=== PATIENT | male | born 1970 | race Caucasian/White ===

== ENCOUNTER 2018-07-11 00:50 | Emergency (ER) | payer MEDICAID ==
[~2018-07-11] VITALS: Ht 182.9 cm; Wt 81.6 kg
[2018-07-11] MEDS ORDERED: ADENOSINE 6 MG/2 ML SYR IV ONE (01:00)
--- NOTE | 2018-07-11 01:00 | NUR ---
Seen and evaluated by
[2018-07-11 02:14] LABS: BASOPHILS # (AUTO) 0.1 K/uL (0.0-8.0); BASOPHILS % (AUTO) 1.3 % (0.0-2.0); EOSINOPHILS # (AUTO) 0.1 K/uL (0.0-0.7); EOSINOPHILS % (AUTO) 1.2 % (0.0-7.0); HEMATOCRIT 40.9 % (36.7-47.1); HEMOGLOBIN 13.9 g/dL (12.5-16.3); LYMPHOCYTES % (AUTO) 22.7 % (20.5-51.5); MEAN CORPUSCULAR HEMOGLOBIN 30.5 uug (23.8-33.4); MEAN CORPUSCULAR HGB CONC 34 g/dL (32.5-36.3); MEAN CORPUSCULAR VOLUME 89.9 fL (73.0-96.2); MONOCYTES # (AUTO) 0.9 K/uL (2.0-10.0); MONOCYTES % (AUTO) 10.1 % (0.0-11.0); NEUTROPHILS # (AUTO) 5.7 K/uL (1.8-8.9); NEUTROPHILS % (AUTO) 64.7 % (38.5-71.5); PLATELET COUNT (AUTO) 221 K/uL (152-348); RED BLOOD CELL COUNT(AUTO) 4.54 MIL/uL (4.06-5.63); WHITE BLOOD COUNT (AUTO) 8.8 K/uL (3.6-10.2)
[2018-07-11 02:25] LABS: CREATININE 1.1 mg/dL (0.6-1.3); MAGNESIUM 2.1 mg/dL (1.8-2.4)
[2018-07-11 02:30] LABS: BILIRUBIN,DIRECT 0.2 mg/dL (0.0-0.2); BILIRUBIN,TOTAL 0.4 mg/dL (0.2-1.0); TOTAL PROTEIN, SERUM 6.4 g/dL (6.4-8.2)
[2018-07-11 02:39] LABS: THYROID STIMULATING HORMONE 5.502 mIU/mL (0.358-3.740)
[2018-07-11] MEDS ORDERED: ASPIRIN EC 325 MG TABLET.DR PO ONE (02:40)
[2018-07-11] MEDS ORDERED: PANTOPRAZOLE SODIUM 40 MG TABLET.DR PO ONE ×2 (02:41→02:45)
[2018-07-11] MEDS ORDERED: ASPIRIN 81 MG TAB.CHEW PO ONE (02:45)
== END 2018-07-11 02:54 | disposition left against medical advice (07) ==
LOC: ER 00:53
DX: I47.1 Supraventricular tachycardia (principal); E03.9 Hypothyroidism, unspecified; R79.89 Other specified abnormal findings of blood chemistry; F17.200 Nicotine dependence, unspecified, uncomplicated; F12.10 Cannabis abuse, uncomplicated; I48.91 Unspecified atrial fibrillation
CPT/HCPCS: 36415; 80048; 80076; 83735; 84443; 84484; 85025; 85730; 93005 ×2; 96374; 99284; J0153; 70030-TC; A4663

== ENCOUNTER 2019-03-22 16:21 | Emergency (ER) | payer MEDICAID ==
[~2019-03-22] VITALS: Ht 182.9 cm; Wt 81.6 kg
[2019-03-22] MEDS ORDERED: ADENOSINE 6 MG/2 ML SYR IV ONE ×2 (16:36→16:40)
[2019-03-22] MEDS ORDERED: MIDAZOLAM HCL 2 MG/2 ML VIAL ONE ×2 (16:41→16:46)
[2019-03-22] MEDS: ADENOSINE 6 MG/2 ML SYR IV ONE ×3 (16:48→16:50)
[2019-03-22] MEDS: MIDAZOLAM HCL 2 MG/2 ML VIAL IV ONE ×2 (16:51)
[2019-03-22] MEDS: IV NS 1000 ML 1,000 ML IV ONE (17:17)
== END 2019-03-22 17:38 | disposition left against medical advice (07) ==
LOC: ER 16:22
DX: R00.0 Tachycardia, unspecified (principal); I48.91 Unspecified atrial fibrillation; F17.200 Nicotine dependence, unspecified, uncomplicated; F12.10 Cannabis abuse, uncomplicated; F15.10 Other stimulant abuse, uncomplicated; Z90.89 Acquired absence of other organs
CPT/HCPCS: 93005; 96374; 99283; J0153 ×2; A4663; J2250; J7030

== ENCOUNTER 2019-07-17 01:07 | Emergency (ER) | payer MEDICAID ==
[~2019-07-17] VITALS: Ht 175.3 cm; Wt 79.4 kg
--- NOTE | 2019-07-17 01:07 | NUR ---
Dr. Fletcher at bedside for MSE
--- NOTE | 2019-07-17 01:10 | NUR ---
Patient walked into ER c/o palpitation with chest discomfort that started 1hr [facility]. Patient SOB. EKG done and informed Dr Fletcher of EKG result.
[2019-07-17] MEDS ORDERED: ADENOSINE 6 MG/2 ML SYR IV ONE ×2 (01:18→03:15)
[2019-07-17 01:44] LABS: CREATININE 1.3 mg/dL (0.6-1.3); POTASSIUM 3.4 mmol/L (3.5-5.1)
[2019-07-17 01:56] LABS: BILIRUBIN,DIRECT 0.1 mg/dL (0.0-0.2); BILIRUBIN,TOTAL 0.3 mg/dL (0.2-1.0); TOTAL PROTEIN, SERUM 6.7 g/dL (6.4-8.2)
[2019-07-17] MEDS ORDERED: POTASSIUM CHLORIDE 20 MEQ TAB.PRT.SR PO ONE (02:00)
[2019-07-17] MEDS ORDERED: MAGNESIUM SULFATE/D5W 100 ML ONE ×2 (02:07→02:19)
[2019-07-17] MEDS ORDERED: POTASSIUM CHLORIDE 20 MEQ TAB.PRT.SR ONE (02:07)
[2019-07-17] MEDS: MAGNESIUM SULFATE/D5W 100 ML IV SCH (02:15)
--- NOTE | 2019-07-17 02:57 | NUR ---
patient in bed awake and watching TV with at bedside. Breathing even and unlabored. denies any chest pain at this time. pt states "i feel better now". Dr. Fletcher made aware
--- NOTE | 2019-07-17 03:29 | NUR ---
IV removed. Catheter intact and site benign. Pressure and 4x4 gauze applied to site. No bleeding noted. Patient does not wish to proceed with medical care recommended by Dr. Fletcher. Patient given information related to possible complications, up to and including , which could occur as a result of leaving the hospital at this time. Patient verbalizes understanding of risks involved due to leaving against medical advice. Patient has signed AMA form. Patient ambulating with steady gait with at bedside. Patient denies any pain or discomfort. NAD noted
== END 2019-07-17 03:33 | disposition left against medical advice (07) ==
LOC: ER 01:09
DX: R00.0 Tachycardia, unspecified (principal); I48.91 Unspecified atrial fibrillation; F17.200 Nicotine dependence, unspecified, uncomplicated; F12.10 Cannabis abuse, uncomplicated; F19.90 Other psychoactive substance use, unspecified, uncomplicated
CPT/HCPCS: 36415; 71045; 80048; 80076; 93005 ×2; 96365; 96375; 99284; J0153; J3475; A4663; J7030

== ENCOUNTER 2020-09-19 01:45 | Emergency (ER) | payer MEDICAID ==
[~2020-09-19] VITALS: Ht 182.9 cm; Wt 79.4 kg
--- NOTE | 2020-09-19 01:58 | NUR ---
Patient is sitting upright on bed, c/o of right eye irritation.
--- NOTE | 2020-09-19 02:05 | NUR ---
MD GARCIA IN ROOM TO EVALUATE PATIENT.
[2020-09-19] MEDS ORDERED: FLUORESCEIN SODIUM 1 MG STRIP OP ONE (02:15)
[2020-09-19] MEDS ORDERED: FLUORESCEIN SODIUM 1 MG STRIP ONE (02:16)
[2020-09-19] MEDS ORDERED: SULFACETAMIDE SOD 10% OPHT DR 15 ML BOTTLE ONE (02:30)
[2020-09-19] MEDS ORDERED: SULFACETAMIDE SOD 10% OPHT DR 15 ML BOTTLE OP ONE (02:30)
[2020-09-19 02:36] VITALS: BP 150/86
--- NOTE | 2020-09-19 02:36 | NUR ---
Patient discharged to home in stable condition. Written and verbal after care instructions given. Patient verbalizes understanding of instructions. Stressed follow up or return to ER for worsening s/s. Patient ambulates without difficulty, left with all belongings, advised to not drive while his eye is patched.
[2020-09-19] MEDS ORDERED: PROPARACAINE 0.5% OPHT DROP 15 ML BOTTLE ONE (02:42)
[2020-09-19] MEDS ORDERED: PROPARACAINE 0.5% OPHT DROP 15 ML BOTTLE OP ONE (02:45)
== END 2020-09-19 02:36 | disposition home or self-care (01) ==
LOC: ER 01:48
DX: T15.01XA Foreign body in cornea, right eye, initial encounter (principal); X58.XXXA Exposure to other specified factors, initial encounter; Y92.89 Other specified places as the place of occurrence of the external cause
CPT/HCPCS: A4663

== ENCOUNTER 2020-11-10 03:47 | Emergency (ER) | payer MEDICAID ==
[~2020-11-10] VITALS: Ht 182.9 cm; Wt 79.4 kg
--- NOTE | 2020-11-10 03:56 | NUR ---
pt presents to ER with c/o of spider bite x 4 days. States he was moving some things and he may have been bitten by a spider. Noted abscess to Lt forearm. No acute distress. Dr. Callejas at bedside examining patient
--- NOTE | 2020-11-10 04:12 | NUR ---
incision and drainage done by Dr. Callejas, wound dressed with dry dressing per Dr. Callejas order.
[2020-11-10] MEDS: LIDOCAINE HCL 2% 20 ML VIAL TP ONE (04:15)
== END 2020-11-10 04:17 | disposition home or self-care (01) ==
LOC: ER 03:50
DX: L02.414 Cutaneous abscess of left upper limb (principal); F17.210 Nicotine dependence, cigarettes, uncomplicated; E89.0 Postprocedural hypothyroidism
CPT/HCPCS: 10060; 99282; J3490; A4663

== ENCOUNTER 2021-07-01 15:49 | Emergency (ER) | payer MEDICAID ==
[~2021-07-01] VITALS: Ht 182.9 cm; Wt 79.4 kg
--- NOTE | 2021-07-01 16:11 | NUR ---
PT IS IN ROOM #2B. DR COLES EVALUATED THE PT.
[2021-07-01] MEDS ORDERED: FLUORESCEIN SODIUM 1 MG STRIP ONE ×2 (16:16→16:41)
[2021-07-01] MEDS ORDERED: TETRACAINE HCL 0.5% OPHT DROP 2 ML BOTTLE ONE (16:16)
[2021-07-01] MEDS ORDERED: ERYT3.5O24 RIGHTEYE (16:59)
--- NOTE | 2021-07-01 17:19 | NUR ---
Pt was d/c'D to home. D/C instructions given to the pt by dr Del Angel.
[2021-07-01 17:20] VITALS: BP 136/88
== END 2021-07-01 17:20 | disposition home or self-care (01) ==
LOC: ER 15:49
DX: F17.210 Nicotine dependence, cigarettes, uncomplicated (principal); E89.0 Postprocedural hypothyroidism; T15.11XA Foreign body in conjunctival sac, right eye, initial encounter; X58.XXXA Exposure to other specified factors, initial encounter; Y93.89 Activity, other specified; Y92.89 Other specified places as the place of occurrence of the external cause
CPT/HCPCS: A4663

== ENCOUNTER 2021-08-20 05:52 | Emergency (ER) | payer MEDICAID ==
[~2021-08-20] VITALS: Ht 177.8 cm; Wt 84.5 kg
[~2021-08-20 05:52] MED LIST: ERYT3.5O24 RIGHTEYE
--- NOTE | 2021-08-20 06:05 | NUR ---
pt ambulated to room 1b pt c/o fast heart rate. pt states he came from [facility]. Pt has a saline lock to right wrist. Dr. Fletcher at bedside for MSE.
[2021-08-20] MEDS ORDERED: ADENOSINE 6 MG/2 ML SYR IV ONE ×3 (06:30→06:39)
--- NOTE | 2021-08-20 06:35 | NUR ---
Dr Fletcher at bedside for Adensine adminstration, myself, Shon RN, Fritz RN at bedside. at 0635 6 mg ivp rapid given at 0636 12 mg rapid given. Repeat ekg performed pt remains in Afib. Dr. Fletcher orderd magnessium sulfate infusion.
[2021-08-20] MEDS: MAGNESIUM SULFATE/D5W 100 ML IV SCH ×2 (06:59→08:12)
[2021-08-20] MEDS ORDERED: MAGNESIUM SULFATE/D5W 200 ML ONE (07:00)
--- NOTE | 2021-08-20 07:00 | NUR ---
Dr. Bagley at bedside speaking with pt.
[2021-08-20] MEDS ORDERED: METOPROLOL TARTRATE 50 MG TABLET PO ONE (07:15)
--- NOTE | 2021-08-20 07:15 | NUR ---
Placed pt back on heart monitor, pt is in rapid A Fib. Pt denies CP and SOB.
[2021-08-20 07:17] LABS: *BILIRUBIN,URIN NEGATIVE (NEGATIVE); *BLOOD, URINE NEGATIVE (NEGATIVE); *CLARITY,URINE CLEAR (CLEAR); *COLOR,URINE YELLOW (YELLOW); *KETONES,URINE NEGATIVE (NEGATIVE); *UROBILINOGEN,URINE 0.2 E.U./dl (NORMAL); LEUKOCYTE ESTERASE ,URINE NEGATIVE (NEGATIVE); NITRITE, URINE NEGATIVE (NEGATIVE); UGLUCOSE NEGATIVE (NEGATIVE)
[2021-08-20] MEDS ORDERED: METOPROLOL TARTRATE 50 MG TABLET ONE (07:24)
[2021-08-20 07:29] LABS: *AMPHETAMINE, URINE NEGATIVE (NEGATIVE); *CANNABINOID, URINE NEGATIVE (NEGATIVE); *COCCAINE, URINE NEGATIVE (NEGATIVE); *OPIATE, URINE NEGATIVE (NEGATIVE); *PHENCYCLIDINE SCREEN,URINE NEGATIVE (NEGATIVE)
[2021-08-20 07:32] LABS: CARBON DIOXIDE 26 mmol/L (21-32); CHLORIDE 102 mmol/L (98-107); CREATININE 0.9 mg/dL (0.6-1.3); GLUCOSE 98 mg/dL (74-106); POTASSIUM 5.3 mmol/L (3.5-5.1); UREA NITROGEN, BLOOD 10 mg/dL (7-18)
[2021-08-20 07:43] LABS: ALANINE AMINOTRANSFERASE 35 U/L (16-63); ALKALINE PHOSPHATASE 52 U/L (50-136); ASPARTATE AMINOTRANSFERASE 35 U/L (15-37); BILIRUBIN,DIRECT < 0.1 mg/dL (0.0-0.2); BILIRUBIN,TOTAL 0.5 mg/dL (0.2-1.0); TOTAL PROTEIN, SERUM 6.5 g/dL (6.4-8.2)
[2021-08-20 08:11] LABS: HEMATOCRIT 45.8 % (36.7-47.1); MEAN CORPUSCULAR VOLUME 90.2 fL (73.0-96.2); PLATELET COUNT (AUTO) 221 K/uL (152-348)
--- NOTE | 2021-08-20 08:16 | NUR ---
Pt denies chest discomfort but states at times "Feel his heart".
--- NOTE | 2021-08-20 08:35 | NUR ---
Patient is resting comfortably in bed with eyes closed, NAD noted.
[2021-08-20 09:12] VITALS: BP 112/64
--- NOTE | 2021-08-20 09:15 | NUR ---
Patient does not wish to proceed with medical care recommended by Dr. Campbell). Patient given information related to possible complications, up to and including , which could occur as a result of leaving the hospital at this time. Patient verbalizes understanding of risks involved due to leaving against medical advice. Patient has signed AMA form.
== END 2021-08-20 09:16 | disposition left against medical advice (07) ==
LOC: ER 05:54
DX: I48.91 Unspecified atrial fibrillation (principal); E89.0 Postprocedural hypothyroidism; F17.210 Nicotine dependence, cigarettes, uncomplicated; F15.11 Other stimulant abuse, in remission; R06.00 Dyspnea, unspecified
CPT/HCPCS: 36415; 71045; 80048; 80076; 80307; 81003; 83880; 84484; 85025; 93005; 96365; 96366; 96375; 99285; J0153; J3475; 70030-TC; A4663; J7040

== ENCOUNTER 2022-03-07 18:56 | Emergency (ER) | payer MEDICAID ==
[~2022-03-07] VITALS: Ht 185.4 cm; Wt 81.6 kg
--- NOTE | 2022-03-07 19:27 | NUR ---
Dr Loera at bedside, MSE in progress.
[2022-03-07] MEDS ORDERED: PROCHLORPERAZINE EDISYLATE 10 MG/2 ML VIAL IV ONE (19:30)
[2022-03-07] MEDS ORDERED: IV NORMAL SALINE 1000 ML BAG IV ONE (19:30)
[2022-03-07] MEDS ORDERED: PROCHLORPERAZINE EDISYLATE 10 MG/2 ML VIAL ONE (19:36)
[2022-03-07 19:49] LABS: HEMATOCRIT 40.4 % (36.7-47.1); MEAN CORPUSCULAR HEMOGLOBIN 29.9 uug (23.8-33.4); MEAN CORPUSCULAR VOLUME 85.6 fL (73.0-96.2); PLATELET COUNT (AUTO) 187 K/uL (152-348)
[2022-03-07 20:14] LABS: CARBON DIOXIDE 28 mmol/L (21-32); CHLORIDE 92 mmol/L (98-107); GLUCOSE 128 mg/dL (74-106); POTASSIUM 3.9 mmol/L (3.5-5.1); UREA NITROGEN, BLOOD 16 mg/dL (7-18)
[2022-03-07 20:23] LABS: ALANINE AMINOTRANSFERASE 21 U/L (16-63); ALKALINE PHOSPHATASE 54 U/L (50-136); ASPARTATE AMINOTRANSFERASE 13 U/L (15-37); BILIRUBIN,DIRECT 0.2 mg/dL (0.0-0.2); BILIRUBIN,TOTAL 0.7 mg/dL (0.2-1.0); LIPASE 46 U/L (73-393); TOTAL PROTEIN, SERUM 7.5 g/dL (6.4-8.2)
[2022-03-07] MEDS ORDERED: IV NS 1000 ML 1,000 ML IV ONE (20:30)
[2022-03-07] MEDS ORDERED: LEVO150T PO (20:36)
[2022-03-07] MEDS ORDERED: PROC10TA29 PO (20:36)
[2022-03-07] MEDS ORDERED: MAGNESIUM SULFATE/D5W 200 ML ONE (20:40)
[2022-03-07] MEDS: MAGNESIUM SULFATE/D5W 100 ML IV SCH ×2 (20:42→21:10)
--- NOTE | 2022-03-07 21:44 | NUR ---
Patient discharged to home in stable condition. Written and verbal after care instructions given. Patient verbalizes understanding of instructions. Stressed follow up or return to ER for worsening s/s. pt ambulated with steady gait. denies pain. AOx4
[2022-03-07 21:47] VITALS: BP 148/101
== END 2022-03-07 21:48 | disposition home or self-care (01) ==
LOC: ER 18:56
DX: R11.2 Nausea with vomiting, unspecified (principal); E87.1 Hypo-osmolality and hyponatremia; E89.0 Postprocedural hypothyroidism; Z79.890 Hormone replacement therapy; F17.211 Nicotine dependence, cigarettes, in remission
CPT/HCPCS: 99285; 96365; 71045; 96361; 96375; 80076; 80048; 84439; 83690; 83735; 84443; 85025; 84484; 36415; 93005; J3475; J0780; J7040 ×2; A4663

== ENCOUNTER 2022-12-30 14:34 | Emergency (ER) | payer MEDICAID ==
[~2022-12-30] VITALS: Ht 182.9 cm; Wt 77.1 kg
[~2022-12-30 14:34] MED LIST changes: +LEVO150T PO; +PROC10TA29 PO
--- NOTE | 2022-12-30 14:42 | NUR ---
seen and examined by MD Kaufman
[2022-12-30] MEDS ORDERED: TDAP DIPH,PERTUSS,TET VAC/PF 0.5 ML DISP.SYRIN IM ONE ×2 (14:45→14:49)
[2022-12-30] MEDS ORDERED: SULF1TAB48 PO (14:48)
[2022-12-30] MEDS ORDERED: CEPH500C2 PO (14:48)
[2022-12-30] MEDS ORDERED: CEphaleXIN 500 MG CAPSULE ONE (14:55)
[2022-12-30] MEDS ORDERED: SULFAMETH/TRIMETH 800/160 MG TABLET ONE (14:55)
[2022-12-30] MEDS ORDERED: CEphaleXIN 500 MG CAPSULE PO ONE (15:00)
[2022-12-30] MEDS ORDERED: SULFAMETH/TRIMETH 800/160 MG TABLET PO ONE (15:00)
--- NOTE | 2022-12-30 15:09 | NUR ---
Patient discharged to home in stable condition. Written and verbal after care instructions given. Patient verbalizes understanding of instructions. Stressed follow up or return to ER for worsening s/s.
[2022-12-30 17:04] VITALS: BP 110/74
== END 2022-12-30 17:05 | disposition home or self-care (01) ==
LOC: ER 14:34
DX: L03.011 Cellulitis of right finger (principal); I48.91 Unspecified atrial fibrillation; F17.210 Nicotine dependence, cigarettes, uncomplicated; Z79.899 Other long term (current) drug therapy
CPT/HCPCS: 90715; A4663

== ENCOUNTER 2023-02-27 18:30 | Emergency (ER) | payer MEDICAID ==
[~2023-02-27] VITALS: Ht 182.9 cm; Wt 79.4 kg
[~2023-02-27 18:30] MED LIST changes: +CEPH500C2 PO; +SULF1TAB48 PO
--- NOTE | 2023-02-27 19:03 | NUR ---
Nursing SBAR given to KARI Flores
[2023-02-27] MEDS ORDERED: ASPI81TA31 PO (19:04)
--- NOTE | 2023-02-27 19:10 | NUR ---
PATIENT PLACED INTO ROOM #5, INFORMED OF PLAN OF CARE, BEDSIDE EKG DONE FOR MD REVIEW. PATIENT HAS BEEN SEEN BY ER PROVIDER, NO S/S OF ANY DISTRESS NOTED, WILL CONTINUE TO MONITOR.
[2023-02-27] MEDS ORDERED: AMIODARONE HCL IV 150 MG in IV DEXTROSE 5% 100 ML IV ONE (19:15)
[2023-02-27] MEDS ORDERED: AMIODARONE HCL 150 MG/3 ML VIAL IV ONE (19:18)
--- NOTE | 2023-02-27 19:20 | NUR ---
REPORT RECIEVED FROM JOSE PIERCE.
[2023-02-27] MEDS ORDERED: ENOXAPARIN SODIUM 80 MG/0.8 ML DISP.SYRIN SQ ONE ×2 (19:30→19:31)
--- NOTE | 2023-02-27 19:30 | NUR ---
CHEST X RAY DONE AT BEDSIDE.
--- NOTE | 2023-02-27 19:31 | NUR ---
Xray at bedside.
--- NOTE | 2023-02-27 19:35 | NUR ---
LAB AT BEDSIDE DRAWING BLOOD.
--- NOTE | 2023-02-27 19:49 | NUR ---
ETONIDATE 5 MG GIVEN PER MD ORDER.
--- NOTE | 2023-02-27 19:51 | NUR ---
PT ON MONITOR AND O2/3L VIA N/C . E[employer] C[employer]IOVERSION DONE AT 200J UNDER CONSCIOUS SEDATION.
--- NOTE | 2023-02-27 19:55 | NUR ---
PT 'S VSS, HR 74, BP - 140/101, RR -16, O2 SAT - 100%. AWARE.
[2023-02-27 19:56] LABS: HEMATOCRIT 43.2 % (36.7-47.1); MEAN CORPUSCULAR VOLUME 89.4 fL (73.0-96.2); PLATELET COUNT (AUTO) 237 K/uL (152-348)
[2023-02-27 20:11] LABS: CARBON DIOXIDE 27 mmol/L (21-32); CHLORIDE 107 mmol/L (98-107); POTASSIUM 3.4 mmol/L (3.5-5.1); UREA NITROGEN, BLOOD 22 mg/dL (7-18)
[2023-02-27] MEDS ORDERED: METOPROLOL SUCCINATE XL 50 MG TAB.SR.24H PO ONE ×2 (20:11→20:15)
[2023-02-27] MEDS ORDERED: ETOMIDATE 20 MG/10 ML VIAL IV ONE (20:15)
[2023-02-27] MEDS ORDERED: ETOMIDATE 20 MG/10 ML VIAL ONE (20:15)
--- NOTE | 2023-02-27 20:29 | NUR ---
Patient does not wish to proceed with medical care recommended by Dr. Del Angel. Patient given information related to possible complications, up to and including , which could occur as a result of leaving the hospital at this time. Patient verbalizes understanding of risks involved due to leaving against medical advice. Patient has signed AMA form.
[2023-02-27 20:31] VITALS: BP 143/98; O2SAT 100
[2023-02-27 20:31] LABS: ALANINE AMINOTRANSFERASE 25 U/L (16-63); ALKALINE PHOSPHATASE 58 U/L (50-136); ASPARTATE AMINOTRANSFERASE 19 U/L (15-37); BILIRUBIN,DIRECT < 0.1 mg/dL (0.0-0.2); BILIRUBIN,TOTAL 0.2 mg/dL (0.2-1.0); TOTAL PROTEIN, SERUM 6.4 g/dL (6.4-8.2)
== END 2023-02-27 20:32 | disposition left against medical advice (07) ==
LOC: ER 18:33
DX: I48.0 Paroxysmal atrial fibrillation (principal); F17.210 Nicotine dependence, cigarettes, uncomplicated; Z71.6 Tobacco abuse counseling; Z90.89 Acquired absence of other organs; Z79.82 Long term (current) use of aspirin; Z79.2 Long term (current) use of antibiotics; Z79.899 Other long term (current) drug therapy
CPT/HCPCS: 92960; 99285; 96365; 71045; 99406; 80076; 80048; 83880; 85025; 85379; 84484; 36415; 93005; 96372; J0282 ×2; J1650; J3490; A4663

== ENCOUNTER 2023-11-04 01:35 | Emergency (ER) | payer MEDICAID ==
[~2023-11-04] VITALS: Ht 182.9 cm; Wt 79.4 kg
[~2023-11-04 01:35] MED LIST changes: +ASPI81TA31 PO
[2023-11-04] MEDS ORDERED: DOXY100T28 PO (02:39)
[2023-11-04] MEDS ORDERED: ITRA100C PO (02:39)
[2023-11-04] MEDS ORDERED: DOXYCYCLINE HYCLATE 100 MG TABLET ONE (02:40)
[2023-11-04] MEDS ORDERED: FLUCONAZOLE 100 MG TABLET ONE (02:41)
[2023-11-04] MEDS: DOXYCYCLINE HYCLATE 100 MG TABLET PO ONE (02:45)
[2023-11-04] MEDS: FLUCONAZOLE 100 MG TABLET PO ONE (02:45)
[2023-11-04 02:46] VITALS: BP 150/99; O2SAT 100
== END 2023-11-04 02:46 | disposition home or self-care (01) ==
LOC: ER 01:39
DX: B35.3 Tinea pedis (principal); L03.116 Cellulitis of left lower limb; L03.115 Cellulitis of right lower limb; F17.200 Nicotine dependence, unspecified, uncomplicated; Z98.890 Other specified postprocedural states; Z79.899 Other long term (current) drug therapy
CPT/HCPCS: A4606; A4663

== ENCOUNTER → 2025-01-21 | Emergency (ER) | payer MEDICAID, OTHER ==
[~2025-01-21] VITALS: Ht 182.9 cm; Wt 81.6 kg
[~2025-01-21] MED LIST changes: +DOXY100T28 PO; +ITRA100C PO
[2025-01-21 13:25] VITALS: O2SAT 97
== END | disposition home or self-care (01) ==
LOC: ER 13:17
DX: S30.1XXA Contusion of abdominal wall, initial encounter (principal); S30.811A Abrasion of abdominal wall, initial encounter; F12.90 Cannabis use, unspecified, uncomplicated; F17.200 Nicotine dependence, unspecified, uncomplicated; I48.91 Unspecified atrial fibrillation; Z79.82 Long term (current) use of aspirin; Z60.2 Problems related to living alone; W10.1XXA Fall (on)(from) sidewalk curb, initial encounter; Y93.89 Activity, other specified; Y92.488 Other paved roadways as the place of occurrence of the external cause; Y99.8 Other external cause status
CPT/HCPCS: 71250; A4606; A4663

== ENCOUNTER 2025-08-01 21:18 | Emergency (ER) | payer OTHER ==
[~2025-08-01] VITALS: Ht 182.9 cm; Wt 83.9 kg
[~2025-08-01 21:18] MED LIST changes: -CEPH500C2 PO; -DOXY100T28 PO; -ERYT3.5O24 RIGHTEYE; -ITRA100C PO; -PROC10TA29 PO; -SULF1TAB48 PO
[2025-08-01 21:25] VITALS: BP 116/89
[2025-08-01 22:30] LABS: *BILIRUBIN,URIN NEGATIVE (NEGATIVE); *COLOR,URINE LIGHT YELLOW (YELLOW); *KETONES,URINE NEGATIVE (NEGATIVE); *PROTEIN,URINE NEGATIVE (NEGATIVE); *UROBILINOGEN,URINE 0.2 E.U./dl (NORMAL); LEUKOCYTE ESTERASE ,URINE TRACE (NEGATIVE); NITRITE, URINE NEGATIVE (NEGATIVE); UGLUCOSE NEGATIVE (NEGATIVE)
[2025-08-01 22:38] LABS: *BLOOD, URINE TRACE (NEGATIVE)
[2025-08-01 22:39] LABS: *CLARITY,URINE HAZY (CLEAR)
[2025-08-01 23:04] LABS: SQUAMOUS EPITHELIAL CELL,UR FEW /HPF (NONE SEEN)
[2025-08-01 23:08] VITALS: BP 116/89; TEMP 98.2; O2SAT 97
== END 2025-08-01 23:09 | disposition home or self-care (01) ==
LOC: ER 21:25
DX: R39.11 Hesitancy of micturition (principal); F17.210 Nicotine dependence, cigarettes, uncomplicated; F15.10 Other stimulant abuse, uncomplicated; F12.90 Cannabis use, unspecified, uncomplicated; I48.91 Unspecified atrial fibrillation; Z79.82 Long term (current) use of aspirin; Z79.890 Hormone replacement therapy
CPT/HCPCS: 87086; A4606; A4663